=== PATIENT | male | born 1970 | race Hispanic/Latino ===

== ENCOUNTER 2018-07-26 11:42 | Observation (INO) | payer SELFPAY ==
[2018-07-26 13:24] LABS: Troponin I Less than 0.010 ng/mL (< 0.028)
[2018-07-26 15:26] LABS: Troponin I Less than 0.010 ng/mL (< 0.028)
[2018-07-26] MEDS ORDERED: Ondansetron ODT 4 MG TAB SL PRN (16:59)
[2018-07-26] MEDS ORDERED: Ondansetron PF 4 MG/2 ML Vial IVP PRN ×2 (16:59→17:39)
[2018-07-26] MEDS ORDERED: Sodium Chloride 0.9% 1,000 ML IV SCH (16:59)
[2018-07-26 17:10] VITALS: BMI 30.6
[2018-07-26] MEDS ORDERED: Ondansetron ODT 4 MG TAB PO PRN (17:39)
[2018-07-26] MEDS ORDERED: hydrALAZINE 20 MG/ML VIAL SLOW IVP PRN (17:39)
[2018-07-26] MEDS ORDERED: Acetaminophen 500 MG TAB PO PRN (17:39)
[2018-07-26] MEDS: Famotidine 20 MG TAB PO SCH (20:48)
[2018-07-27 00:11] VITALS: TEMP 97.5
[2018-07-27 06:24] LABS: Hemoglobin A1c 5.4 % (4.0-6.0)
[2018-07-27 06:29] LABS: Band 2 % (5-11); Eosinophils 2 % (0-10); Hemoglobin 15.9 g/dL (14.0-18.0); Lymphocytes 42 % (21-51); MDiff Complete? YES; Mean Corpuscular HGB CONC 33.5 g/dL (32.0-36.0); Mean Corpuscular Hemoglobin 30.7 pg (27.0-31.0); Mean Corpuscular Volume 91.5 fL (78.0-98.0); Mean Platelet Volume 7.7 fL (7.4-10.4); Monocytes 14 % (0-10); Neutrophil 40 % (42-75); Platelet Count 228 thou/uL (130-400); RBC Distribution Width 12.8 % (11.5-14.5); Red Blood Cell (RBC) Count 5.19 mill/uL (4.70-6.10); White Blood Cell (WBC) Count 7.3 thou/uL (4.8-10.8)
[2018-07-27 06:33] LABS: Anion Gap 13 mmol/L (10-20); BUN (Urea Nitrogen) 11 mg/dL (8.9-20.6); Calc. Creatinine Clearance 167 mL/min (70-130); Calcium 9.3 mg/dL (7.8-10.44); Carbon Dioxide 24 mmol/L (22-29); Cardiac Risk 6.6 (Less than 4.5); Chloride 105 mmol/L (98-107); Cholesterol 219 mg/dl (< 200 Desired); Estimated GFR-MDRD Greater than 90; Glucose 105 mg/dL (70-105); HDL Cholesterol 33 mg/dL (>60 Neg Risk); LDL Cholesterol, Calculated 147 mg/dL; Potassium 4.1 mmol/L (3.5-5.1); Sodium 138 mmol/L (136-145); Triglycerides 194 mg/dL (Less than 150)
[2018-07-27] MEDS ORDERED: Aspirin 325 MG TAB PO SCH (09:00)
[2018-07-27] MEDS: Famotidine 20 MG TAB PO SCH (09:59)
--- NOTE | 2018-07-27 10:51 | NM ---
MYOCARDIAL PERFUSION SCAN WITH SPECT IMAGING: HISTORY: Chest pain. Examination was performed using 33 mCi 99m Technetium sestamibi on the stress and 10.5 on the resting images. This shows a fairly normal distribution of the radiopharmaceutical. No signs of ischemia o r scar. WALL MOTION: There is symmetric contractility to the ventricle. LEFT VENTRICULAR EJECTION FRACTION: The calculated left ventricular ejection fraction was 64%. IMPRESSION: Unremarkable myocardial perfusion scan. POS: TANNA
[2018-07-27 12:15] VITALS: BP 131/90
--- NOTE | 2018-07-27 14:17 | STRESS ---
Acquisition Time: 2018-07-27 08:16:57 Total Exercise Time: 00:09:01 Test Indications: CHEST PAIN Medications: Protocol: CORAL Max HR: 148 BPM 86% of Pred: 172 BPM Max BP: 158/078 mmHG Max Work Load: 10.3 METS THE PATIENT EXERCISED FOR 9:00 ON A CORAL PROTOCOL. PEAK HEAR RATE= 148 BPM AND TARGET HEART RATE= 146 BPM. HE DID NOT DEVELOP CHEST PAIN. THERE WAS NO SIGNIFICANT ST DEPRESSION. NORMAL EXERCISE TREADMILL TEST. AWAIT NUCLEAR IMAGES FOR DEFINITIVE DIAGNOSIS. Confirmed by SARI PHAM ([id number]), tape editor MONICA DINH ([id number]) on 07/27/2018 2:16:37 PM Referred By: MD Murray MCGOVERN Confirmed By:SARI PHAM
--- NOTE | 2018-07-29 18:31 | DIS ---
DATE OF ADMISSION: 07/26/2018 DATE OF DISCHARGE: 07/27/2018 DISCHARGE DIAGNOSES: 1. Chest pain, likely musculoskeletal. 2. Hyperlipidemia. 3. Gastroesophageal reflux disease. CONSULTATIONS: None. PERTINENT LABORATORY DATA AND IMAGING STUDIES: Basic metabolic profile within normal limits. Hemoglobin A1c 5.4. Total cholesterol 219, triglycerides 194, HDL 33, LDL 147. Troponin-I negative x3. CBC within normal limits. Portable chest x-ray, dated 07/26/2018, showed no acute cardiopulmonary process. Cardiolite stress testing, dated 07/27/2018, showed no evidence of reversible or fixed ischemia with calculated ejection fraction of 64%. HOSPITAL COURSE: The patient was observed on the telemetry unit after initially presenting with left-sided chest pain. The patient underwent serial cardiac biomarkers, negative x3, proceeding to exercise Cardiolite stress testing showing no evidence of reversible or fixed ischemia with overall calculated ejection fraction of 64%. Telemetry monitoring showed sinus mechanism without acute arrhythmia or dysrhythmia. Current recommendations are for dietary management of hyperlipidemia as well as low-dose aspirin 81 mg daily. Likely, musculoskeletal chest pain is in conjunction with gastroesophageal reflux. The patient overall clinically stable during the hospital course. I have discussed followup instruction with the patient, who verbalized understanding and in agreement, and ready for discharge home on 07/27/2018. DISCHARGE MEDICATIONS: 1. Aspirin 81 mg one tablet p.o. daily. 2. Nexium 40 mg p.o. daily. FOLLOWUP: The patient will follow up with a primary care provider in the [place], [place] area upon returning to his hometown. CONDITION ON DISCHARGE: Stable. ACTIVITY: Ad bipin. DIET: Heart healthy. CODE STATUS: Full. DISPOSITION: Home on 07/27/2018. Job ID: [id number]
--- NOTE | 2018-07-29 19:07 | HP ---
PRIMARY CARE PHYSICIAN: CHIEF COMPLAINT: Chest pain. HISTORY OF PRESENT ILLNESS: This is a 48-year-old male, who presents to [facility] Emergency Department and transferred from [facility] complaining of left-sided chest pain. 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 The patient denied any prior history of coronary artery disease, myocardial infarction, but does state that his father had a history of coronary artery disease. The patient admitted to breathing in dust that was from the ceiling tiles he was removing at the time of his symptoms appeared. The patient initially stated that the pain was dull and pressure-like, left-sided without specific radiation to the left arm, neck, or back. The patient denied any associated nausea, vomiting, or diarrhea. The patient denied any other change to his chronic medication regimen, but does state that he takes Nexium for reflux symptoms. In the emergency room, the patient underwent general evaluation including chest imaging, which was unremarkable. EKG did show T-wave inversions in the inferior leads with negative troponin I x1. The patient received aspirin and nitroglycerin and was referred to the hospitalist service for evaluation. PAST MEDICAL HISTORY: 1. Gastroesophageal reflux disease, treated with Nexium. 2. Question of hyperlipidemia. PAST SURGICAL HISTORY: Status post right medial meniscus tear with repair of the right knee. CURRENT MEDICATIONS: Nexium 40 mg p.o. daily. ALLERGIES: NO KNOWN DRUG ALLERGIES. FAMILY HISTORY: Father with history of coronary artery disease and myocardial infarction x2. SOCIAL HISTORY: The patient with alcohol use. No tobacco or illicit drug use. Lives in the [facility] and works in construction as a contractor. REVIEW OF SYSTEMS: otherwise negative except as stated above in the HPI. PHYSICAL EXAMINATION: VITAL SIGNS: On admission, blood pressure 133/93, pulse 65, respiratory rate 20, temperature 97.6 degrees Fahrenheit, and O2 saturation 96% on room air. GENERAL APPEARANCE: This is a 48-year-old male. Alert and oriented x3, pleasant, conversant, and in no acute distress. HEENT: Pupils are equal, round, and reactive to light and accommodation. Extraocular muscles are intact. No scleral icterus. No conjunctival injection. Nares are patent. OP is clear. Teeth in fair repair. NECK: Supple. No cervical adenopathy. No thyromegaly. No carotid bruits. No JVD appreciated. Cervical spine with full active and passive range of motion. No meningeal signs appreciated. CHEST: Lungs are clear to auscultation bilaterally. CARDIOVASCULAR: S1 and S2 without noted murmur, rub, or gallop. ABDOMEN: Rounded, soft, nontender, nondistended. Bowel sounds are positive in all four quadrants. There is no hepatosplenomegaly. No abdominal bruits. No rebound or guarding appreciated. EXTREMITIES: Warm and dry with fair turgor. No clubbing, cyanosis, or asymmetric edema appreciated. Pulses are palpable distally, dorsalis pedis, posterior tibial, and popliteal arteries bilaterally. Capillary refill less than 2 seconds. NEUROLOGIC: Cranial nerves 2 through 12 were grossly intact. No focal or lateralizing signs appreciated. PERTINENT LAB AND X-RAY FINDINGS: Basic metabolic profile within normal limits. Total CK 191, troponin I negative x1. BNP less than 10. CBC within normal limits. Portable chest x-ray dated 07/26/2018 showed no acute cardiopulmonary process. EKG dated 07/26/2018 by my interpretation shows a sinus mechanism with heart rates in the 60s. Normal R-wave progression noted in the precordial lead. Normal axis. T-wave inversion in the inferior leads noted. ASSESSMENT AND PLAN: 1. Chest pain. The patient will be observed on the telemetry unit. We will continue serial cardiac biomarkers for enzymatic rule out. We will proceed with exercise Cardiolite stress testing in the a.m. Check fasting lipid profile. Continue aspirin 325 mg daily. 2. Gastroesophageal reflux. Continue Pepcid 20 mg p.o. b.i.d. 3. Hyperlipidemia. We will check fasting lipid profile in the a.m. 4. Hyperglycemia. We will check A1c level in the a.m. No current history of previous diabetes mellitus. 5. Prophylaxis. Sequential compression devices while in bed. Pepcid 20 mg p.o. b.i.d. 6. Code status is full. Surrogate medical decision maker is the patient's spouse. Job ID: [id number]
--- NOTE | 2018-07-30 14:59 | EKG ---
Test Reason : Blood Pressure : / mmHG Vent. Rate : 066 BPM Atrial Rate : 066 BPM P-R Int : 150 ms QRS Dur : 098 ms QT Int : 438 ms P-R-T Axes : 039 053 -07 degrees QTc Int : 459 ms Normal sinus rhythm T wave abnormality, consider inferior ischemia Abnormal ECG Confirmed by BRIGID SHUKLA ([id number]), story editor KIM MIJARES ([id number]) on 07/30/2018 2:58:46 PM Referred By: Confirmed By:BRIGID SHUKLA
== END 2018-07-27 12:45 | disposition home or self-care (01) ==
LOC: ERS 11:42 → ERHOLD 13:05 → 2SW 16:24
PROVIDERS: ADMIT Family Medicine; ATTEND Family Medicine
DX: R07.89 Other chest pain (principal); K21.9 Gastro-esophageal reflux disease without esophagitis; E78.5 Hyperlipidemia, unspecified; Z79.899 Other long term (current) drug therapy
CPT/HCPCS: 36415; 78452; 80048; 80061; 83036; 85007; 85027; 90471; 90686; 93005; 93017; 94760; A9500; G0008; G0378